=== PATIENT | female | born 2000 | race Caucasian/White ===

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

== ENCOUNTER 2021-06-14 17:36 | Emergency (ER) | payer OTHER ==
[~2021-06-14] VITALS: Ht 162.6 cm; Wt 63.6 kg
[2021-06-14 17:44] VITALS: TEMP 987.3
[2021-06-14 18:51] VITALS: BP 102/84; PULSE 77
== END 2021-06-14 18:51 | disposition home or self-care (01) ==
LOC: COL.ER 17:36
DX: G43.909 Migraine, unspecified, not intractable, without status migrainosus (principal)
CPT/HCPCS: J1885